=== PATIENT | male | born 1975 | race African-American/Black ===

== ENCOUNTER 2017-04-30 21:37 | Emergency (ER) | payer SELFPAY ==
[~2017-04-30 21:37] MED LIST: ISOVUE-370 76%-LOCM 1 ML ONE
[2017-04-30] MEDS ORDERED: Acetaminophen 500 MG TAB ONE (23:58)
--- NOTE | 2017-05-01 00:06 | CT ---
EXAM: NONCONTRAST HEAD CT 04/30/17 HISTORY: Patient was running from police when he fell approximately 8 to 10 feet into a ditch, landing on his head. After fall, patient got up and continued running. Patient was caught by the police. Posttraumat ic pain. COMPARISON: 07/23/05. TECHNIQUE: Noncontrast head CT is performed from skull base to skull vertex. FINDINGS: No parenchymal hemorrhage. No extra-axial hematoma. No midline shift. Basilar cisterns are patent. Br ain volume is age appropriate. Cortical de la torre-white matter differentiation is preserved. Ventricles an d sulci are patent and symmetric. Adequate aeration of the sinuses and mastoid air cells. Calvarium is intact. IMPRESSION: No intracranial posttraumatic sequela. POS: [facility]
--- NOTE | 2017-05-01 00:12 | CT ---
CT CERVICAL SPINE WITHOUT CONTRAST 04/30/17 HISTORY: Trauma. Fall. Pain. COMPARISON: 07/23/05. TECHNIQUE: CT cervical spine is performed without contrast administration. Reformatted images are submitted for interpretation. FINDINGS: The visualized soft tissue neck structures, upper mediastinum and lung apices are unremarkable. Centr al spinal canal and neural foramina are patent. There are varying degrees of central canal stenosis a nd foraminal narrowing on the basis of degenerative change. Cervical spine vertebral body height is maintained. No fracture. Appropriate alignment of the lateral masses of C1 and C2. Odontoid process is intact. Appropriate ali gnment of the intra-articular facets. Straightening of the normal cervical lordosis likely due to pat ient position, muscle spasm or cervical collar. Current study is not tailored to assess for ligamento us injury. IMPRESSION: 1. No fracture. 2. Straightening of the normal cervical lordosis as detailed above. POS: [facility]
--- NOTE | 2017-05-01 00:21 | CT ---
ABDOMEN CT WITH CONTRAST PELVIC CT WITH CONTRAST LIMITED CT OF LUMBAR SPINE 04/30/17 HISTORY: Trauma. Patient fell from a height of 8 to 10 feet into a ditch. Posttraumatic pain. COMPARISON: None. TECHNIQUE: Abdomen and pelvic CT are performed with IV contrast. Enteric contrast was not administered. Coronal reformatted images are submitted for interpretation. Limited CT of the lumbar spine with reformatted images. FINDINGS: ABDOMEN CT: Lung bases demonstrate dependent atelectatic changes. Heart size is normal. No pericardial effusion. The descending thoracic aorta and abdominal aorta have a normal caliber. No periaortic fat stranding. Symmetric attenuation of the psoas muscles. Contracted gallbladder likely due to nonfasting state. Intra and extrahepatic portal vein is patent. 7 mm hypodensity in the left hepatic lobe, too small to characterize. No CT evidence of solid organ i njury. Symmetric enhancement of the kidneys. Bilaterally, no obstructive uropathy. There is a subcentimeter hypodensity in the left renal cortex, too small to characterize. No mesenteric mass, lymphadenopathy, free air or free fluid. Limited evaluation of the alimentary canal due to absence of oral contrast a dministration. No evidence of bowel obstruction. Ileocecal junction is normal. Fecalization of the di stal ileum likely due to incompetent ileocecal valve. Normal caliber appendix. Scattered fecal materi al in a nondistended, nondilated colon. PELVIC CT: No mass, lymphadenopathy, free air or free fluid. Urinary bladder is unremarkable. No fracture of the visualized bony thorax. No fracture in the visualized bony pelvis. LIMITED CT OF THE LUMBAR SPINE: Vertebral body height is maintained. No fracture. IMPRESSION: No posttraumatic change in the abdomen or pelvis. POS: [facility]
[2017-05-01] MEDS ORDERED: Ibuprofen 200 MG TAB ONE (01:07)
--- NOTE | 2017-05-01 07:41 | RAD ---
RIGHT SHOULDER 3 VIEWS: Date: 05/01/17 HISTORY: Trauma. COMPARISON: None. FINDINGS: No acute fracture or malalignment. Soft tissues are unremarkable. IMPRESSION: No acute fracture or malalignment. POS: [facility]
--- NOTE | 2017-05-01 07:41 | RAD ---
LEFT SHOULDER 3 VIEWS: Date: 05/01/17 HISTORY: Trauma. COMPARISON: None. FINDINGS: No acute fracture or malalignment. No displaced rib fracture. IMPRESSION: No acute fracture or malalignment. POS: [facility]
--- NOTE | 2017-05-01 07:42 | RAD ---
LEFT TIBIA AND FIBULA 2 VIEWS: Date: 05/01/17 HISTORY: Trauma. COMPARISON: None. FINDINGS: No acute fracture or malalignment. Enthesopathic changes of the tibial tendon insertion upon the grea ter tuberosity. IMPRESSION: No acute fracture or malalignment. POS: [facility]
--- NOTE | 2017-05-01 07:43 | RAD ---
LEFT FEMUR 2 VIEWS: Date: 05/01/17 HISTORY: Trauma. COMPARISON: None. FINDINGS: There is contrast within the urinary bladder. No acute fracture or malalignment. IMPRESSION: No acute fracture or malalignment. POS: [facility]
--- NOTE | 2017-05-01 07:43 | RAD ---
RIGHT TIBIA AND FIBULA 2 VIEWS: Date: 05/01/17 HISTORY: Trauma. COMPARISON: None. FINDINGS: No acute fracture or malalignment. Soft tissues are unremarkable. There is dorsal navicular accessory ossicle. IMPRESSION: No acute fracture or malalignment. POS: [facility]
== END 2017-05-01 01:13 | disposition home or self-care (01) ==
LOC: ERS 21:37
DX: S00.81XA Abrasion of other part of head, initial encounter (principal); S80.812A Abrasion, left lower leg, initial encounter; S80.811A Abrasion, right lower leg, initial encounter; F17.210 Nicotine dependence, cigarettes, uncomplicated; W18.30XA Fall on same level, unspecified, initial encounter
CPT/HCPCS: 70450; 72125; 74177

== ENCOUNTER 2017-12-15 09:05 | Emergency (ER) | payer OTHER, SELFPAY ==
[2017-12-15] MEDS ORDERED: Adacel (T-DAP) 0.5 ML VIAL ONE (09:25)
[2017-12-15] MEDS ORDERED: Ketorolac Tromethamine 60 MG/2 ML VIAL ONE (09:25)
[2017-12-15] MEDS ORDERED: Bacitracin Zinc 1 Packet ONE (09:28)
== END 2017-12-15 10:35 | disposition home or self-care (01) ==
LOC: ERS 09:05
DX: S50.311A Abrasion of right elbow, initial encounter (principal); S80.212A Abrasion, left knee, initial encounter; F17.210 Nicotine dependence, cigarettes, uncomplicated; V04.99XA Pedestrian with other conveyance injured in collision with heavy transport vehicle or bus, unspecified whether traffic or nontraffic accident, initial encounter
CPT/HCPCS: 90471; 90715; J1885